=== PATIENT | female | born 1955 ===

== ENCOUNTER 2024-08-22 06:00 | Day surgery (SDC) | payer OTHER ==
[2024-08-18 11:34] LABS: HEMOGLOBIN 13.4 g/dL (12.0-15.00); MEAN CELL VOLUME 84.8 fL (80.00-100.00); MEAN CORPUSCULAR HEMOGLOBIN 27.8 pg (27.00-32.0); MEAN CORPUSCULAR HGB CONC 32.7 g/dl (32.0-36.0); PLATELET COUNT 189 K/uL (150-450); RED BLOOD COUNT 4.83 M/uL (4.00-6.00); RED CELL DISTRIBUTION WIDTH 15.3 % (11.5-14.5)
[2024-08-18 11:42] LABS: URINE APPEARANCE Clear; URINE BILIRRUBIN Negative (NEGATIVE); URINE BLOOD Trace; URINE COLOR Yellow; URINE GLUCOSE Negative (NEGATIVE); URINE KETONE Negative (NEGATIVE); URINE LEUKOCYTE Negative; URINE NITRATE Negative; URINE PROTEIN Negative (NEGATIVE); URINE UROBILINOGEN 0.2 E.U./dl
[2024-08-18 11:46] LABS: URINE BACTERIA 23.9 uL (0.0-1933); URINE EPITHELIAL CELLS 4.6 uL (0.0-38.8); URINE RBC 107.4 uL (0.0-20.8); URINE WBC 3.3 uL (0.0-23.2)
[2024-08-18 11:59] LABS: URINE CAST 0.45 uL (0.0-1.40)
[2024-08-18 12:37] LABS: INR 1.01; PARTIAL THROMBOPLASTIN TIME 28.2 SECONDS (22.0-34.0)
[2024-08-18 12:43] LABS: ALBUMIN 4.2 gm/dL (3.4-5.0); BILIRUBIN TOTAL 0.59 mg/dL (0.3-1.2); CALCIUM 9.9 mg/dL (8.5-10.1); CREATININE SERUM 0.73 mg/dL (0.55-1.02); GFR 79.05; POTASSIUM 4.07 mEq/L (3.5-5.1); TOTAL PROTEIN 7.2 gm/dL (6.4-8.2)
[~2024-08-22 06:00] MED LIST: COZAAR25 MG; PRAVASTATIN SOD40 MG; SYNTHROID50 MCG
[2024-08-22] MEDS ORDERED: CEFAZOLIN SODIUM 1,000 MG VIAL IV ONE (10:20)
[2024-08-22] MEDS ORDERED: BUPIVACAINE HCL 30 ML VIAL IJ ONE (12:00)
== END 2024-08-22 14:40 | disposition home or self-care (01) ==
LOC: CIR.AMB 06:00
PROVIDERS: ATTEND Orthopaedic Surgery Hand Surgery
DX: M19.041 Primary osteoarthritis, right hand (principal); I10 Essential (primary) hypertension; E11.9 Type 2 diabetes mellitus without complications